=== PATIENT | male | born 1975 | race Caucasian/White ===

== ENCOUNTER 2025-05-10 09:18 | Outpatient (CLI) | payer BC, SELFPAY ==
[2025-05-10 07:57] LABS: HCT 41.3 % (40.0-50.0); HGB 13.7 g/dL (13.5-17.5); MCH 29.6 pg (27.0-33.0); MCHC 33.2 % (32.0-36.0); MCV 89 fL (80-95); MPV 8.9 fL (8.0-11.0); Platelet Count 249 10^3/uL (130-400); RBC 4.63 10^6/uL (4.36-5.78); RDW 14.6 % (11.8-14.1); RDW-SD 47.7 fL; WBC 11.09 10^3/uL (4.4-10.8)
[2025-05-10 08:43] LABS: C-Reactive Protein < 0.50 mg/dL (<=0.50)
[2025-05-10 08:44] LABS: ALT 38 U/L (10-49); AST 21 U/L (<34); Albumin 4.2 g/dL (3.2-5.0); Alkaline Phosphatase 66 U/L (46-116); Anion Gap 7 mmol/L (3-11); BUN 36 mg/dL (9-23); Bilirubin, Total 0.70 mg/dL (0.2-1.2); CO2 32.0 mmol/L (20.0-31.0); Calcium 9.7 mg/dL (8.3-10.6); Chloride 104 mmol/L (98-107); Glucose 87 mg/dL (74-106); Potassium 3.9 mmol/L (3.5-5.1); Sodium 143 mmol/L (136-145); Total Protein 6.6 g/dL (5.7-8.2)
== END 2025-05-10 09:19 | disposition home or self-care (01) ==
LOC: LBO 09:18
PROVIDERS: Visit Provider Student in an Organized Health Care Education/Training Program
DX: M31.31 Wegener's granulomatosis with renal involvement (principal)
CPT/HCPCS: 36415; 80053; 85027; 86140